=== PATIENT | male | born 1950 | race Native Hawaiian/Other Pacific Islander ===

== ENCOUNTER 2016-08-01 16:37 | Emergency (ER) | payer MEDICARE, MEDICAID ==
[2016-08-01 19:35] VITALS: BP 155/93
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
== END 2016-08-01 19:45 | disposition home or self-care (01) ==
LOC: ED 16:37
DX: H93.13 Tinnitus, bilateral (principal); I10 Essential (primary) hypertension
CPT/HCPCS: 99282